=== PATIENT | female | born 1965 | race Caucasian/White ===

== ENCOUNTER 2019-08-13 12:13 | Outpatient (RCR) | payer MEDICAID ==
[2019-07-13 13:45] VITALS: BP 111/71
[~2019-08-13] VITALS: Ht 152.4 cm; Wt 100.0 kg
[~2019-08-13 12:13] MED LIST: HEParin (CENTRAL IV FLUSH) 500 UNIT/5 ML SYR IV ONE; HEParin (CENTRAL IV FLUSH) 500 UNIT/5 ML SYR ONE
[2019-08-13] MEDS ORDERED: HEParin (CENTRAL IV FLUSH) 500 UNIT/5 ML SYR ONE (12:14)
[2019-08-13] MEDS ORDERED: HEParin (CENTRAL IV FLUSH) 500 UNIT/5 ML SYR IV NR (12:21)
[2019-08-13 12:25] VITALS: BP 112/67
[2019-08-28] MEDS ORDERED: METO-333 PO (10:32)
[2019-08-28] MEDS ORDERED: ASPI-586 PO (10:32)
[2019-08-28] MEDS ORDERED: METF-397 PO (10:32)
[2019-08-28] MEDS ORDERED: ALB0.5V INH (10:32)
[2019-08-28] MEDS ORDERED: DULO60CA59 PO (10:32)
[2019-08-28] MEDS ORDERED: POTA10CA43 PO (10:32)
[2019-08-28] MEDS ORDERED: LOSA50TA63 PO (10:32)
[2019-08-28] MEDS ORDERED: OMEP40CA27 PO (10:32)
[2019-08-28] MEDS ORDERED: MELO15TA39 PO (10:32)
[2019-08-28] MEDS ORDERED: SPIR25TA5 PO (10:32)
[2019-08-28] MEDS ORDERED: ATOR10TA66 PO (10:32)
[2019-09-03] MEDS ORDERED: GBPN600T PO (11:26)
[2019-09-03] MEDS ORDERED: PIOG15TA67 PO (11:33)
[2019-09-03] MEDS ORDERED: TOPI50TA13 PO (11:33)
[2019-09-03] MEDS ORDERED: HYDR50TA76 PO (11:33)
[2019-09-03] MEDS ORDERED: SOLI5TAB7 PO (11:33)
[2019-09-03] MEDS ORDERED: LEVO100T7 PO (11:33)
== END 2019-10-11 | disposition home or self-care (01) ==
LOC: SDC 12:13
PROVIDERS: ATTEND Surgery
DX: Z45.2 Encounter for adjustment and management of vascular access device (principal)
CPT/HCPCS: 96523

== ENCOUNTER 2019-08-28 10:15 | Outpatient (CLI) | payer MEDICAID ==
[~2019-08-28] VITALS: Ht 165 cm; Wt 104.0 kg
[2019-08-28] MEDS ORDERED: METO-333 PO (10:32)
[2019-08-28] MEDS ORDERED: ASPI-586 PO (10:32)
[2019-08-28] MEDS ORDERED: METF-397 PO (10:32)
[2019-08-28] MEDS ORDERED: SPIR25TA5 PO (10:32)
[2019-08-28] MEDS ORDERED: DULO60CA59 PO (10:32)
[2019-08-28] MEDS ORDERED: MELO15TA39 PO (10:32)
[2019-08-28] MEDS ORDERED: ATOR10TA66 PO (10:32)
[2019-08-28] MEDS ORDERED: OMEP40CA27 PO (10:32)
[2019-08-28] MEDS ORDERED: LOSA50TA63 PO (10:32)
[2019-08-28] MEDS ORDERED: POTA10CA43 PO (10:32)
[2019-08-28] MEDS ORDERED: ALB0.5V INH (10:32)
== END 2019-08-28 11:52 | disposition home or self-care (01) ==
LOC: PREOP 10:15
PROVIDERS: ATTEND Surgery
DX: Z01.818 Encounter for other preprocedural examination (principal)